=== PATIENT | female | born 1980 | race Caucasian/White ===

== ENCOUNTER 2023-03-26 11:40 | Day surgery (SDC) | payer MEDICAID ==
[~2023-03-26] VITALS: Ht 160 cm; Wt 68.4 kg
[2023-03-26 12:15] VITALS: BP 119/79; PULSE 79; RESP 16; TEMP 98.4; O2SAT 97
[2023-03-26] MEDS ORDERED: VITA-268 PO (12:20)
[2023-03-26] MEDS ORDERED: FERR-121 PO (12:20)
[2023-03-26] MEDS ORDERED: ERGO400C PO (12:20)
[2023-03-26] MEDS ORDERED: LEVO75TA PO (12:20)
[2023-03-26 12:59] LABS: BASOPHILS % (AUTO) 0.6 % (0-1); EOSINOPHILS # (AUTO) 0.1 X10'3 (0-0.9); EOSINOPHILS % (AUTO) 1.6 % (0-6); HEMATOCRIT 37.7 % (35.0-45.0); HEMOGLOBIN 12.4 g/dl (12.0-16.0); LYMPHOCYTES # (AUTO) 1.3 X10'3 (1.1-4.8); LYMPHOCYTES % (AUTO) 28.5 % (21-51); MEAN CORPUSCULAR HEMOGLOBIN 28.2 PG (27.0-31.0); MEAN CORPUSCULAR VOLUME 85.7 FL (78-98); MEAN PLATELET VOLUME 8.1 FL (7.4-10.4); MONOCYTES # (AUTO) 0.4 X10'3 (0-0.9); MONOCYTES % (AUTO) 9.1 % (2-12); NEUTROPHILS # (AUTO) 2.7 X10'3 (1.8-7.7); NEUTROPHILS % (AUTO) 60.2 % (42-75); PLATELET COUNT 287 X10'3 (140-440); RED BLOOD COUNT 4.41 X10'6 (4.20-5.60); RED CELL DISTRIBUTION WIDTH 14.5 % (11.5-14.5); WHITE BLOOD COUNT 4.6 X10'3 (4.5-11.0)
[2023-03-26 13:02] LABS: PROTHROMBIN TIME 10.9 SECONDS (9.0-12.0)
[2023-03-26] MEDS ORDERED: midazolam 1 mg/ML 2ml injection ONE (13:21)
[2023-03-26] MEDS ORDERED: fentaNYL/PF 50MCG/1 ML 2ML syringe ONE (13:21)
[2023-03-26] MEDS ORDERED: heparin sodium, porcine/PF 100unit/ml 5ML syringe ONE (13:22)
[2023-03-26 14:40] VITALS: BP 124/81; PULSE 71; RESP 18; O2SAT 93
[2023-03-26 14:55] VITALS: BP 112/67; PULSE 71; RESP 18; O2SAT 93
[2023-03-26 15:10] VITALS: BP 110/71; PULSE 61; RESP 18; O2SAT 93
[2023-03-26 15:25] VITALS: BP 108/66; PULSE 61; RESP 18; O2SAT 93
[2023-03-26 15:40] VITALS: BP 111/75; PULSE 68; RESP 18; O2SAT 95
== END 2023-03-26 16:15 | disposition home or self-care (01) ==
LOC: SSTAY O 11:40
PROVIDERS: ATTEND Radiology Vascular & Interventional Radiology
DX: C50.811 Malignant neoplasm of overlapping sites of right female breast (principal); Z79.890 Hormone replacement therapy; Z79.899 Other long term (current) drug therapy
CPT/HCPCS: 36415; 36561; 76937; 77001; 85025; 85610; 99152; 99153; C1769; C1788; J1642; J2250; J3010; J7030; 76942; A4620; C1894